=== PATIENT | male | born 1995 | race Two or more races ===

== ENCOUNTER 2016-11-21 22:53 | Emergency (ER) | payer MEDICAID ==
[2016-11-22] MEDS ORDERED: oxyCOD/ACETAMIN 5 MG/325 MG TABLET PO STA
[2016-11-22] MEDS ORDERED: oxyCOD/ACETAMIN 5 MG/325 MG TABLET PO ONE (00:01)
== END 2016-11-22 00:15 | disposition home or self-care (01) ==
DX: S63.8X1A Sprain of other part of right wrist and hand, initial encounter (principal); X50.0XXA Overexertion from strenuous movement or load, initial encounter; W01.0XXA Fall on same level from slipping, tripping and stumbling without subsequent striking against object, initial encounter; Y92.254 Theater (live) as the place of occurrence of the external cause
CPT/HCPCS: 73130; 99283; A9270

== ENCOUNTER 2017-01-25 16:59 | Outpatient (CLI) | payer MEDICAID | END 2017-01-25 17:00 | disposition critical access hospital (66) | LOC: EMS 16:59 | PROVIDERS: ATTEND Surgery | DX: R07.9 Chest pain, unspecified (principal) | CPT/HCPCS: A0425; A0427 ==

== ENCOUNTER 2017-01-25 17:21 | Emergency (ER) | payer MEDICAID ==
--- NOTE | 2017-01-25 18:24 | ED Physician Documentation ---
PD HPI CHEST PAIN - Stated complaint Stated Complaint: L CP/ ANXIETY - Chief complaint Chief Complaint: Cardiac - History obtained from History obtained from: Patient - History of Present Illness Timing - onset: Today Timing - onset during: Emotional event (was in verbal argument and very anxious , felt left chest pain and general weakness.) Timing - duration: Hours (1) Timing - details: Abrupt onset, Now resolved Quality: Pressure, Aching Location: Left chest Radiation: Neck, Left upper extremity Improved by: Rest Worsened by: No: Inspiration, Movement Associated symptoms: Shortness of air. 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 denies: Palpitations, Pedal edema, Calf pain Respiratory: denies: Dyspnea, Cough, Wheezing PD PAST MEDICAL HISTORY - Past Medical History Cardiovascular: None Respiratory: None Neuro: None Endocrine/Autoimmune: None GI: None : None HEENT: None Psych: None Musculoskeletal: None Derm: None - Past Surgical History Past Surgical History: No - Present Medications Home Medications: Ambulatory Orders Medication Instructions Recorded Confirmed HYDROcod/ACETAM 5/325 [[place] 5/325] 1 - 2 ea PO Q6H PRN #15 tablet 03/12/16 oxyCODONE/ACET 5/325 [Percocet 5 1 - 2 each PO Q6H PRN #14 tablet 11/22/16 mg/325 mg] Hydrocodone/Acetaminophen [[place] 1 each PO Q6H PRN #15 tablet 01/25/17 5-325 Tablet] Lorazepam 1 mg PO ONCE PRN #5 tablet 01/25/17 Naproxen [Naprosyn] 500 mg PO BID #15 tablet 01/25/17 - Allergies Allergies/Adverse Reactions: Allergies Allergy/AdvReac Type Severity Reaction Status Date / Time No Known Drug Allergies Allergy Verified 11/21/16 23:05 - Social History Does the pt smoke?: No Smoking Status: Never smoker Does the pt drink ETOH?: No Does the pt have substance abuse?: No - Family History Family history: reports: CAD (at mid ages (40s and 50s)). denies: Sudden , Venous thromboembolism, Aortic aneursym, Aortic dissection - Immunizations Immunizations are current?: Yes - POLST Patient has POLST: No PD ED PE NORMAL - Vitals Vital signs reviewed: Yes - General General: Alert and oriented X 3, Well developed/nourished, Other (significantly obese) - HEENT HEENT: Moist mucous membranes, Pharynx benign - Neck Neck: Supple, no meningeal sign, No adenopathy, No JVD, No bruit - Cardiac Cardiac: RRR, No murmur, No rub - Respiratory Respiratory: No respiratory distress, Clear bilaterally, Other (left pectoral area with some tenderness to palpatyion. ) - Abdomen Abdomen: Soft, Non tender - Derm Derm: Normal color, Warm and dry, No rash - Extremities Extremities: No tenderness to palpate, Normal ROM s pain, No edema, No calf tenderness / cord - Neuro Neuro: Alert and oriented X 3, No motor deficit, Normal speech - Psych Psych: No: Normal affect (depressed and slightly anxious) Results - Vitals Vitals: Oxygen O2 Source Room air - Labs Labs: Laboratory Tests 01/25/17 01/25/17 01/25/17 19:15 19:15 19:15 WBC 12.8 H RBC 5.30 Hgb 14.8 Hct 43.9 MCV 82.9 MCH 28.0 MCHC 33.8 RDW 13.7 Plt Count 231 MPV 8.0 Neut # 7.0 H Lymph # 4.5 H [place] # 1.0 Eos # 0.2 Baso # 0.0 Absolute Nucleated RBC 0.00 Nucleated RBCs 0.0 Sodium 138 Potassium 3.5 Chloride 105 Carbon Dioxide 24 Anion Gap 9.0 BUN 17 Creatinine 0.6 Estimated GFR (MDRD) 168 Glucose 98 Calcium 8.9 Total Bilirubin 0.5 AST 58 H ALT 75 H Alkaline Phosphatase 75 Troponin I < 0.04 B-Natriuretic Peptide Total Protein 7.4 Albumin 3.9 Globulin 3.5 Albumin/Globulin Ratio 1.1 Lipase 13 L 01/25/17 19:15 WBC RBC Hgb Hct MCV MCH MCHC RDW Plt Count MPV Neut # Lymph # [place] # Eos # Baso # Absolute Nucleated RBC Nucleated RBCs Sodium Potassium Chloride Carbon Dioxide Anion Gap BUN Creatinine Estimated GFR (MDRD) Glucose Calcium Total Bilirubin AST ALT Alkaline Phosphatase Troponin I B-Natriuretic Peptide 17 Total Protein Albumin Globulin Albumin/Globulin Ratio Lipase PD MEDICAL DECISION MAKING - ED course Complexity details: considered differential (The chest pain came on during emotional verbal argument, and is better now, though with some left chest/ pectoral area tenderness. 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 even though young, could consider stress testing to ensure no CAD. ), d/w patient Departure - Departure Disposition: Home, Self Care Clinical Impression: Emotional stress reaction Chest pain Qualifiers: Chest pain type: precordial pain Qualified Code(s): R07.2 - Precordial pain Condition: Stable Record reviewed to determine appropriate education?: Yes Instructions: ED Strain Chest Wall, ED Chest Pain Atypical Unkn Cause Follow-Up: [facility] [Provider Group] [facility] - Card [Provider Group] Prescriptions: Lorazepam 1 mg PO ONCE PRN #5 tablet PRN Reason: Anxiety Naproxen [Naprosyn] 500 mg PO BID #15 tablet Hydrocodone/Acetaminophen [[place] 5-325 Tablet] 1 each PO Q6H PRN #15 tablet PRN Reason: Pain Comments: Likely to be muscular chest pain and can be from emotional and physical stress. Naproxen twice daily for a week, and add Tylenol or hydrocodone as needed for pains. Can use Lorazepam periodically if needed for anxiety reaction. Follow up with [facility] about this and/or call Cardiology group. Consider a heart stress test to ensure no signs of heart disease. Discharge Date/Time: 01/25/17 20:42
[2017-01-25] MEDS ORDERED: KETOROLAC 30 MG/ML VIAL ONE (19:02)
[2017-01-25] MEDS ORDERED: LORazepam 2 MG/ML SYRINGE ONE (19:03)
[2017-01-25] MEDS: KETOROLAC 60 MG/2 ML VIAL IVP STA (19:11)
[2017-01-25] MEDS: LORazepam 2 MG/ML SYRINGE IVP STA (19:11)
[2017-01-25 19:47] LABS: BASOPHILS % (AUTO) 0.3 %; EOSINOPHILS # (AUTO) 0.2 10^3/uL (0.0-0.7); EOSINOPHILS % (AUTO) 1.8 %; HCT - HEMATOCRIT 43.9 % (42.0-52.0); HGB - HEMOGLOBIN 14.8 g/dL (14.0-18.0); LYMPHOCYTES # (AUTO) 4.5 10^3/uL (1.5-3.5); LYMPHOCYTES % (AUTO) 35.4 %; MEAN CORPUSCULAR HGB CONC 33.8 g/dL (32.0-36.0); MEAN CORPUSCULAR VOLUME 82.9 fL (80.0-94.0); NEUTROPHILS % (AUTO) 54.5 %; RED CELL DISTRIBUTION WIDTH 13.7 % (12.0-15.0); UNCORRECTED WHITE BLOOD COUNT 12.8 x10^3/uL; WHITE BLOOD COUNT 12.8 x10^3/uL (4.8-10.8)
--- NOTE | 2017-01-25 19:52 | XRAY Preliminary Report ---
Exam: XR Chest 2 View PA/LAT IMPRESSION: Normal 2-view chest radiography. [facility] SITE ID: [id number]
--- NOTE | 2017-01-25 19:53 | XRAY Report ---
EXAM: CHEST RADIOGRAPHY EXAM DATE: 01/25/2017 07:36 PM. CLINICAL HISTORY: Left chest pain today. COMPARISON: 10/31/2012. TECHNIQUE: 2 views. FINDINGS: Lungs/Pleura: No focal opacities evident. No pleural effusion. No pneumothorax. Normal volumes. Mediastinum: Heart and mediastinal contours are unremarkable. Other: No bony abnormality noted. IMPRESSION: Normal 2-view chest radiography. [facility] Referring Provider Line: [phone] SITE ID: [id number]
[2017-01-25 20:01] LABS: ALBUMIN/GLOBULIN RATIO 1.1 (1.0-2.2); BILIRUBIN,TOTAL 0.5 mg/dL (0.2-1.0); CALCIUM 8.9 mg/dL (8.5-10.3); CREATININE 0.6 mg/dL (0.6-1.2); POTASSIUM 3.5 mmol/L (3.5-5.0); TOTAL PROTEIN 7.4 g/dL (6.7-8.2)
[2017-01-25] MEDS ORDERED: HYDROcod/ACETAM 5/325 MG TABLET ONE (20:29)
[2017-01-25] MEDS: HYDROcod/ACETAM 5/325 MG TABLET PO STA (20:31)
[2017-01-25] MEDS ORDERED: ONDANSETRON 4 MG/2 ML VIAL ONE (20:35)
[2017-01-25 20:37] VITALS: BP 152/72
[2017-01-25] MEDS: ONDANSETRON 4 MG/2 ML VIAL IVP STA (20:37)
== END 2017-01-25 20:42 | disposition home or self-care (01) ==
LOC: EDUNIT# → ED 17:21
DX: R07.9 Chest pain, unspecified (principal); F43.8 Other reactions to severe stress
CPT/HCPCS: 36415; 71020; 80053; 83690; 83880; 84484; 85025; 93005; 96374; 96375; 99283; 99284

== ENCOUNTER 2017-05-08 20:17 | Emergency (ER) | payer MEDICAID ==
[2017-05-08 20:44] VITALS: BP 123/79
--- NOTE | 2017-05-08 22:26 | XRAY Preliminary Report ---
Exam: XR Hand 3 View RT IMPRESSION: 1. No acute abnormality seen in the hand. [facility] SITE ID: [id number]
--- NOTE | 2017-05-08 22:28 | XRAY Report ---
EXAM: RIGHT HAND RADIOGRAPHY EXAM DATE: 05/08/2017 10:04 PM. CLINICAL HISTORY: Pain after injury. COMPARISON: 11/21/2016. TECHNIQUE: 3 views. FINDINGS: Bones: No acute fracture seen. Joints: No dislocation. Joint spaces appear preserved. Soft Tissues: Grossly unremarkable. IMPRESSION: 1. No acute abnormality seen in the hand. [facility] Referring Provider Line: [phone] SITE ID: [id number]
--- NOTE | 2017-05-08 22:31 | ED Physician Documentation ---
PD HPI UPPER EXT INJURY - Stated complaint Stated Complaint: THUMB PX - Chief complaint Chief Complaint: Ext Problem - History obtained from History obtained from: Patient - History of Present Illness Location: Left, Wrist, Hand Type of injury: Other Where injury occurred: Home Timing - onset: Yesterday Timing - details: Gradual onset Improved by: Immobilization Worsened by: Moving, Palpating Associated symptoms: No: Weakness, Numbness Contributing factors: No: Anticoagulated, Prior ortho surgery Similar symptoms before: Has not had sx before Recently seen: Not recently seen - Additonal information Additional information: Patient is a 21 year old male with no significant past medical history who is presenting to the emergency department for right sided thumb pain. Patient states that he was moving into a new apartment yesterday and today he developed pain in his right thumb. patient states that he was lifting things but denied any other trauma. Review of Systems Constitutional: denies: Fever, Chills Eyes: denies: Decreased vision Ears: denies: Ear pain, Drainage/discharge Nose: denies: Congestion Throat: denies: Sore throat Cardiac: denies: Chest pain / pressure GI: denies: Nausea, Vomiting Musculoskeletal: reports: Extremity pain, Joint pain, Extremity swelling Neurologic: denies: Generalized weakness, Focal weakness, Numbness Immunocompromised: denies: Immunocompromised PD PAST MEDICAL HISTORY - Past Medical History Past Medical History: No Cardiovascular: None Respiratory: None Neuro: None Endocrine/Autoimmune: None GI: None : None HEENT: None Psych: None Musculoskeletal: None Derm: None - Past Surgical History Past Surgical History: Yes HEENT: Tonsil/Adenoidectomy - Present Medications Home Medications: Ambulatory Orders Medication Instructions Recorded Confirmed No Known Home Medications [No 05/08/17 05/08/17 Known Home Medications] - Allergies Allergies/Adverse Reactions: Allergies Allergy/AdvReac Type Severity Reaction Status Date / Time No Known Drug Allergies Allergy Verified 05/08/17 20:44 - Social History Does the pt smoke?: No Smoking Status: Never smoker Does the pt drink ETOH?: No Does the pt have substance abuse?: No - Immunizations Immunizations are current?: Yes - POLST Patient has POLST: No PD ED PE NORMAL - Vitals Vital signs reviewed: Yes - General General: Alert and oriented X 3, No acute distress - HEENT HEENT: Atraumatic, PERRL - Neck Neck: Supple, no meningeal sign - Respiratory Respiratory: No respiratory distress - Abdomen Abdomen: Non distended - Derm Derm: Normal color, Warm and dry, No rash - Neuro Neuro: Alert and oriented X 3, No motor deficit, No sensory deficit, Normal speech - Psych Psych: Normal mood PD ED PE EXPANDED - Extremities Extremities: Right hand (tenderness over thenar eminence, and mild tenderness in the thumb. full rom, neurovascularly intact) Results - Vitals Vitals: Vital Signs - 24 hr 05/08/17 20:40 Temperature 36.4 C L Heart Rate 87 Respiratory 18 Rate Blood Pressure 123/79 O2 Saturation 97 Oxygen O2 Source Room air - Rads (name of study) hand x-ray Radiology: Final report received (no acute fracture or dislocation) PD MEDICAL DECISION MAKING - ED course Complexity details: reviewed old records, reviewed results, re-evaluated patient , considered differential, d/w patient ED course: Patient was seen and examined at bedside. patient had been sent for imaging. when patient returned the results were reviewed. there was no acute fracture or dislocation. Patient was treated with motrin and placed in an sameer bandage. patient required no further work up and was stable for discharge with outpatient follow up. Departure - Departure Disposition: 01 Home, Self Care Clinical Impression: Tendonitis of wrist, right Condition: Good Instructions: Wrist Sprain Follow-Up: primary,care provider [Other] - As Needed Comments: Your diagnostics today were within normal limits. there is no acute fracture or dislocation. you are likely to be in pain over the next few days, especially if you have to keep using it. You should take motrin or tylenol as needed fro pain. You should also ice your wrist, keep it elevated and wear the sameer bandage as needed for pain. You should follow up with your pmd if your symptoms persist. You may return to the emergency department at any time for new, worsening or uncontrollable symptoms. Discharge Date/Time: 05/08/17 22:36
== END 2017-05-08 22:36 | disposition home or self-care (01) ==
LOC: ED 20:17
DX: M77.9 Enthesopathy, unspecified (principal)
CPT/HCPCS: 99282; 99283

== ENCOUNTER 2018-02-22 | Outpatient (CLI) | END 2018-02-22 13:13 | disposition critical access hospital (66) | CPT/HCPCS: A0425; A0429 ==

== ENCOUNTER 2018-02-22 13:41 | Emergency (ER) | payer OTHER, MEDICAID ==
[2018-02-22 14:01] VITALS: BP 158/93
[2018-02-22] MEDS ORDERED: ONDANSETRON ODT 4 MG TABLET TL STA (15:05)
[2018-02-22] MEDS ORDERED: ACETAMINOPHEN 325 MG TABLET PO STA (15:05)
--- NOTE | 2018-02-22 15:10 | ED Physician Documentation ---
History of Present Illness - Stated complaint Stated Complaint: N/V - Chief complaint Chief Complaint: Abd Pain - History obtained from History obtained from: Patient - History of Present Illness Timing: Today Pain level max: 3 Pain level now: 3 Improved by: removing himself from the grill Worsened by: being at the grill. 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 Slightly developed a headache as well. States he has never passed out before. States he felt very hot and overheated. He is currently feeling better, though still mildly nauseated and a slight headache. No focal neurological deficits. No fevers. No recent illnesses. No vomiting. Review of Systems Constitutional: denies: Fever, Chills Ears: denies: Ear pain Nose: denies: Rhinorrhea / runny nose, Congestion Throat: denies: Sore throat Cardiac: denies: Chest pain / pressure Respiratory: denies: Cough GI: denies: Vomiting, Diarrhea Skin: denies: Rash Musculoskeletal: denies: Neck pain, Back pain Neurologic: denies: Headache PD PAST MEDICAL HISTORY - Past Medical History Past Medical History: No Cardiovascular: None Respiratory: None Endocrine/Autoimmune: None GI: None : None HEENT: None Psych: None Musculoskeletal: None Derm: None - Past Surgical History Past Surgical History: Yes HEENT: Tonsil/Adenoidectomy - Present Medications Home Medications: Ambulatory Orders Medication Instructions Recorded Confirmed No Known Home Medications [No 05/08/17 02/22/18 Known Home Medications] - Allergies Allergies/Adverse Reactions: Allergies Allergy/AdvReac Type Severity Reaction Status Date / Time No Known Drug Allergies Allergy Verified 02/22/18 14:01 - Social History Does the pt smoke?: No Smoking Status: Never smoker Does the pt drink ETOH?: No Does the pt have substance abuse?: No - Immunizations Immunizations are current?: Yes - POLST Patient has POLST: No PD ED PE NORMAL - Vitals Vital signs reviewed: Yes - General General: Alert and oriented X 3, Other (morbidly obese male) - HEENT HEENT: PERRL, Moist mucous membranes, Pharynx benign - Neck Neck: Supple, no meningeal sign - Cardiac Cardiac: RRR, Strong equal pulses - Respiratory Respiratory: No respiratory distress, Clear bilaterally - Abdomen Abdomen: Soft, Non tender, Non distended - Back Back: No spinal TTP - Derm Derm: Warm and dry, No rash - Extremities Extremities: No calf tenderness / cord - Neuro Neuro: Alert and oriented X 3, 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, No motor deficit, No sensory deficit, Normal speech - Psych Psych: Normal mood, Normal affect Results - Vitals Vitals: Vital Signs - 24 hr 02/22/18 13:44 Temperature 36.8 C Heart Rate 98 Respiratory 20 Rate Blood Pressure 158/93 H O2 Saturation 94 Oxygen O2 Source Room air - EKG (time done) 1510 Rate: Rate (enter#) (84) Rhythm: NSR [place]: Normal Intervals: Normal [place] QRS: Normal Ischemia: Normal ST segments - Labs Labs: Laboratory Tests 02/22/18 02/22/18 14:50 14:50 WBC 11.2 H RBC 5.33 Hgb 15.3 Hct 44.6 MCV 83.7 MCH 28.7 MCHC 34.3 RDW 13.2 Plt Count 244 MPV 7.4 Neut # (Auto) 6.5 Lymph # (Auto) 3.9 H [place] # (Auto) 0.7 Eos # (Auto) 0.1 Baso # (Auto) 0.0 Absolute Nucleated RBC 0.00 Nucleated RBC % 0.0 Sodium 136 Potassium 3.5 Chloride 102 Carbon Dioxide 25 Anion Gap 9.0 BUN 14 Creatinine 0.7 Estimated GFR (MDRD) 140 Glucose 94 Calcium 9.1 Total Bilirubin 0.7 AST 52 H ALT 70 H Alkaline Phosphatase 87 Total Protein 7.9 Albumin 4.1 Globulin 3.8 Albumin/Globulin Ratio 1.1 Lipase 18 L PD MEDICAL DECISION MAKING - ED course Complexity details: reviewed results, re-evaluated patient, considered differential, d/w patient ED course: Patient is a 22-year-old male who presents to the emergency department 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 He was given a dose of Zofran for nausea and Tylenol for headache. Symptoms resolved. No acute findings on laboratory testing or EKG. He is morbidly obese as well. We will have him drink plenty of fluids at home and follow-up closely with his doctor. Tolerating p.o. without difficulty here. Patient is well-appearing, nontoxic. Afebrile. Patient counseled regarding signs and symptoms for which I believe and urgent re-evaluation would be necessary. Patient with good understanding of and agreement to plan and is comfortable going home at this time This document was made in part using voice recognition software. While efforts are made to proofread this document, sound alike and grammatical errors may occur. - Sepsis Event Vital Signs: Vital Signs - 24 hr 02/22/18 13:44 Temperature 36.8 C Heart Rate 98 Respiratory 20 Rate Blood Pressure 158/93 H O2 Saturation 94 Oxygen O2 Source Room air Departure - Departure Disposition: 01 Home, Self Care Clinical Impression: Near syncope Condition: Good Instructions: ED Near Syncope Unkn Follow-Up: your,doctor in 1 week [Other] Comments: The cause of your symptoms is unclear today, but likely related to the heat and dehydration. Go home today and rest. Drink plenty of water. Return if you worsen. Forms: Activity restrictions Discharge Date/Time: 02/22/18 15:39
[2018-02-22 15:13] LABS: BASOPHILS % (AUTO) 0.2 %; EOSINOPHILS # (AUTO) 0.1 10^3/uL (0.0-0.7); EOSINOPHILS % (AUTO) 1.1 %; HGB - HEMOGLOBIN 15.3 g/dL (14.0-18.0); LYMPHOCYTES # (AUTO) 3.9 10^3/uL (1.5-3.5); LYMPHOCYTES % (AUTO) 34.5 %; MEAN CORPUSCULAR HEMOGLOBIN 28.7 pg (27.0-31.0); MEAN CORPUSCULAR HGB CONC 34.3 g/dL (32.0-36.0); MEAN CORPUSCULAR VOLUME 83.7 fL (80.0-94.0); MEAN PLATELET VOLUME 7.4 fL (7.4-11.4); MONOCYTES # (AUTO) 0.7 10^3/uL (0.0-1.0); MONOCYTES % (AUTO) 6.1 %; NEUTROPHILS # (AUTO) 6.5 10^3/uL (1.5-6.6); NEUTROPHILS % (AUTO) 58.1 %; PLT - PLATELET COUNT 244 10^3/uL (130-450); RED BLOOD COUNT 5.33 10^6/uL (4.70-6.10); RED CELL DISTRIBUTION WIDTH 13.2 % (12.0-15.0); WHITE BLOOD COUNT 11.2 x10^3/uL (4.8-10.8)
[2018-02-22 15:25] LABS: ALBUMIN 4.1 g/dL (3.2-5.5); ALBUMIN/GLOBULIN RATIO 1.1 (1.0-2.2); BILIRUBIN,TOTAL 0.7 mg/dL (0.2-1.0); CALCIUM 9.1 mg/dL (8.5-10.3); CREATININE 0.7 mg/dL (0.6-1.2); TOTAL PROTEIN 7.9 g/dL (6.7-8.2)
== END 2018-02-22 15:39 | disposition home or self-care (01) ==
LOC: EDUNIT# → ED 13:41
DX: R55 Syncope and collapse (principal); R11.0 Nausea; R51 Headache; E66.01 Morbid (severe) obesity due to excess calories
CPT/HCPCS: 36415; 80053; 83690; 85025; 93005; 99282; 99283; A9270; Q0162

== ENCOUNTER 2018-02-24 08:00 | Outpatient (CLI) | payer OTHER, MEDICAID ==
[2018-02-24 10:35] LABS: MUDS CUTOFF CONCENTRATIONS CUTOFF CONC BELOW:
[2018-02-24 12:36] LABS: BUN - BLOOD UREA NITROGEN 12 mg/dL (6-20); CALCIUM 8.8 mg/dL (8.5-10.3); CARBON DIOXIDE - CO2 26 mmol/L (21-32); CHLORIDE 104 mmol/L (101-111); CHOL/HDL RATIO 4.4 (<5.0); CHOLESTEROL 140 mg/dL; CREATININE 0.5 mg/dL (0.6-1.2); GFR - MDRD 206 (>89); GLUCOSE 95 mg/dL (70-100); HDL CHOLESTEROL 32 mg/dL; LDL CHOLESTEROL,CALCULATED 90 mg/dL; LDL/HDL RATIO 2.8 (<3.6); SODIUM 139 mmol/L (135-145); VLDL CHOLESTEROL 18 mg/dL
[2018-02-24 12:45] LABS: THYROID STIMULATING HORMONE 1.47 uIU/mL (0.34-5.60)
[2018-02-24 12:53] LABS: FOLATE 13.82 ng/mL (5.90 - >24.8)
[2018-02-24 13:08] LABS: AMPHETAMINE SCREEN,URINE NEGATIVE (NEGATIVE); BENZODIAZEPINES SCREEN, URINE NEGATIVE (NEGATIVE); COCAINE SCREEN URINE NEGATIVE (NEGATIVE); METHADONE SCREEN, URINE NEGATIVE (NEGATIVE); METHAMPHETAMINES SCREEN, URINE NEGATIVE (NEGATIVE); OPIATE SCREEN, URINE NEGATIVE (NEGATIVE); OXYCODONE SCREEN, URINE NEGATIVE (NEGATIVE); PROPOXYPHENE SCREEN, URINE NEGATIVE (NEGATIVE); TRICYCLIC ANTIDEPRESSANT,URINE NEGATIVE (NEGATIVE)
== END 2018-02-24 08:01 ==
LOC: LAB.N 08:00
PROVIDERS: ATTEND Nurse Practitioner
DX: R03.0 Elevated blood-pressure reading, without diagnosis of hypertension (principal); R55 Syncope and collapse
CPT/HCPCS: 36415; 80048; 80061; 80306; 82607; 82746; 83721; 84443

== ENCOUNTER 2018-03-26 04:13 | Outpatient (CLI) | payer MEDICAID | END 2018-03-26 04:14 | disposition critical access hospital (66) | LOC: EMS 04:13 | PROVIDERS: ATTEND Surgery | DX: R46.4 Slowness and poor responsiveness (principal) | CPT/HCPCS: A0425; A0427; A0999 ==

== ENCOUNTER 2018-03-26 04:33 | Emergency (ER) | payer MEDICAID ==
[2018-03-26 05:30] LABS: BASOPHILS % (AUTO) 0.4 %; EOSINOPHILS # (AUTO) 0.1 10^3/uL (0.0-0.7); EOSINOPHILS % (AUTO) 0.8 %; LYMPHOCYTES # (AUTO) 3.1 10^3/uL (1.5-3.5); LYMPHOCYTES % (AUTO) 29.5 %; MEAN CORPUSCULAR HEMOGLOBIN 29.2 pg (27.0-31.0); MEAN CORPUSCULAR HGB CONC 35.3 g/dL (32.0-36.0); MEAN CORPUSCULAR VOLUME 82.7 fL (80.0-94.0); MEAN PLATELET VOLUME 7.4 fL (7.4-11.4); MONOCYTES # (AUTO) 0.9 10^3/uL (0.0-1.0); MONOCYTES % (AUTO) 8.2 %; NEUTROPHILS # (AUTO) 6.5 10^3/uL (1.5-6.6); NEUTROPHILS % (AUTO) 61.1 %; PLT - PLATELET COUNT 233 10^3/uL (130-450); RED BLOOD COUNT 5.14 10^6/uL (4.70-6.10); WHITE BLOOD COUNT 10.6 x10^3/uL (4.8-10.8)
[2018-03-26 05:36] LABS: ALBUMIN 4.2 g/dL (3.2-5.5); ALBUMIN/GLOBULIN RATIO 1.2 (1.0-2.2); BILIRUBIN,TOTAL 0.6 mg/dL (0.2-1.0); CALCIUM 8.7 mg/dL (8.5-10.3); CREATININE 0.6 mg/dL (0.6-1.2); TOTAL PROTEIN 7.6 g/dL (6.7-8.2)
--- NOTE | 2018-03-26 06:10 | ED Physician Documentation ---
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 en route to ED, medics found patient to be keeping eyes closed and non verbal, although he would follow most commands slowly, and would respond to questions by shaking/nodding head. by the time of my evaluation, he is awake, alert, oriented x 3. he recalls feeling lightheaded while seated and watching TV, got up to tell his he felt lightheaded, then next recalls waking up in ambulance. at the time of my HPI, he is asymptomatic and w/o c/o Review of Systems Eyes: reports: Reviewed and negative Cardiac: reports: Reviewed and negative Respiratory: reports: Reviewed and negative GI: reports: Reviewed and negative Musculoskeletal: reports: Reviewed and negative Neurologic: reports: Syncope, LOC. denies: Generalized weakness, Focal weakness , Numbness, Headache PD PAST MEDICAL HISTORY - Past Medical History Past Medical History: No Cardiovascular: None Respiratory: None Endocrine/Autoimmune: None GI: None : None HEENT: None Psych: None Musculoskeletal: None Derm: None - Past Surgical History Past Surgical History: Yes HEENT: Tonsil/Adenoidectomy - Present Medications Home Medications: Ambulatory Orders Medication Instructions Recorded Confirmed No Known Home Medications [No 05/08/17 02/22/18 Known Home Medications] - Allergies Allergies/Adverse Reactions: Allergies Allergy/AdvReac Type Severity Reaction Status Date / Time No Known Drug Allergies Allergy Verified 02/22/18 14:01 - Social History Does the pt smoke?: No Smoking Status: Never smoker Does the pt drink ETOH?: No Does the pt have substance abuse?: No - Immunizations Immunizations are current?: Yes - POLST Patient has POLST: No PD ED PE NORMAL - Vitals Vital signs reviewed: Yes - General General: Alert and oriented X 3, No acute distress, Well developed/nourished - HEENT HEENT: Atraumatic, PERRL, EOMI - Neck Neck: No bony TTP - Cardiac Cardiac: RRR, No murmur - Respiratory Respiratory: No respiratory distress, Clear bilaterally - Abdomen Abdomen: Soft, Non tender - Derm Derm: Normal color, Warm and dry, No rash - Extremities Extremities: No deformity - Neuro Neuro: Alert and oriented X 3, 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, No motor deficit, No sensory deficit, Normal speech Results - Vitals Vitals: Oxygen O2 Source Room air - EKG (time done) No standard instances Rate: Rate (enter#) (89) Rhythm: NSR [place]: Normal Intervals: Normal [place] QRS: Normal Ischemia: Normal ST segments - Labs Labs: Laboratory Tests 03/26/18 03/26/18 03/26/18 05:19 05:19 05:19 WBC 10.6 RBC 5.14 Hgb 15.0 Hct 42.6 MCV 82.7 MCH 29.2 MCHC 35.3 RDW 13.0 Plt Count 233 MPV 7.4 Neut # (Auto) 6.5 Lymph # (Auto) 3.1 [place] # (Auto) 0.9 Eos # (Auto) 0.1 Baso # (Auto) 0.0 Absolute Nucleated RBC 0.01 Nucleated RBC % 0.1 Sodium 137 Potassium 3.3 L Chloride 104 Carbon Dioxide 25 Anion Gap 8.0 BUN 16 Creatinine 0.6 Estimated GFR (MDRD) 167 Glucose 104 H Calcium 8.7 Total Bilirubin 0.6 AST 36 ALT 57 Alkaline Phosphatase 87 Troponin I < 0.04 Total Protein 7.6 Albumin 4.2 Globulin 3.4 Albumin/Globulin Ratio 1.2 Lipase 20 L - Rads (name of study) chest xray Radiology: Prelim report reviewed, See rad report PD MEDICAL DECISION MAKING - ED course Complexity details: reviewed old records, reviewed results, re-evaluated patient , considered differential, d/w patient - Sepsis Event Vital Signs: Oxygen O2 Source Room air Departure - Departure Disposition: 01 Home, Self Care Clinical Impression: Chest pain Qualifiers: Chest pain type: unspecified Qualified Code(s): R07.9 - Chest pain, unspecified Syncope Qualifiers: Syncope type: unspecified Qualified Code(s): R55 - Syncope and collapse Condition: Good Instructions: ED Chest Pain Atypical Unkn Cause, ED Fainting Unkn Cause Discharge Date/Time: 03/26/18 07:18
--- NOTE | 2018-03-26 07:13 | XRAY Report ---
Procedure Date: 03/26/2018 Accession Number: [id number] / [id number] Procedure: XR - Chest 2 View X-Ray CPT Code: 06059 FULL RESULT: EXAM: CHEST RADIOGRAPHY EXAM DATE: 03/26/2018 06:41 AM. CLINICAL HISTORY: Syncope, chest pain. COMPARISON: 01/25/2017. TECHNIQUE: 2 views. FINDINGS: Lungs/Pleura: No focal opacities evident. No pleural effusion. No pneumothorax. Normal volumes. Mediastinum: Heart and mediastinal contours are unremarkable. Other: None. IMPRESSION: Normal 2-view chest radiography. [facility]
[2018-03-26 07:18] VITALS: BP 124/72
== END 2018-03-26 07:18 | disposition home or self-care (01) ==
LOC: EDUNIT# → ED 04:33
DX: R07.9 Chest pain, unspecified (principal); R55 Syncope and collapse
CPT/HCPCS: 36415; 71046; 80053; 83690; 84484; 85025; 93005; 99284

== ENCOUNTER 2018-04-02 08:02 | Outpatient (CLI) | payer MEDICAID | END 2018-04-02 08:03 | disposition critical access hospital (66) | LOC: EMS 08:02 | PROVIDERS: ATTEND Surgery | DX: R45.851 Suicidal ideations (principal) | CPT/HCPCS: A0425; A0429; A0999 ==

== ENCOUNTER 2018-04-02 08:23 | Emergency (ER) | payer MEDICAID ==
[2018-04-02 08:58] LABS: BASOPHILS % (AUTO) 0.1 %; EOSINOPHILS # (AUTO) 0.1 10^3/uL (0.0-0.7); EOSINOPHILS % (AUTO) 1.2 %; HGB - HEMOGLOBIN 15.1 g/dL (14.0-18.0); LYMPHOCYTES # (AUTO) 2.8 10^3/uL (1.5-3.5); LYMPHOCYTES % (AUTO) 33.9 %; MEAN CORPUSCULAR HEMOGLOBIN 28.8 pg (27.0-31.0); MEAN CORPUSCULAR HGB CONC 34.4 g/dL (32.0-36.0); MEAN CORPUSCULAR VOLUME 83.8 fL (80.0-94.0); MEAN PLATELET VOLUME 7.7 fL (7.4-11.4); MONOCYTES # (AUTO) 0.7 10^3/uL (0.0-1.0); NEUTROPHILS # (AUTO) 4.7 10^3/uL (1.5-6.6); NEUTROPHILS % (AUTO) 56.8 %; PLT - PLATELET COUNT 207 10^3/uL (130-450); RED BLOOD COUNT 5.24 10^6/uL (4.70-6.10); RED CELL DISTRIBUTION WIDTH 13.4 % (12.0-15.0); WHITE BLOOD COUNT 8.3 x10^3/uL (4.8-10.8)
[2018-04-02 09:10] LABS: ALBUMIN 3.9 g/dL (3.2-5.5); ALBUMIN/GLOBULIN RATIO 1.1 (1.0-2.2); ALKALINE PHOSPHATASE 81 IU/L (42-121); ALT ALANINE AMINOTRANSFERASE 58 IU/L (10-60); AST ASPARTATE AMINOTRANSFERASE 34 IU/L (10-42); BUN - BLOOD UREA NITROGEN 14 mg/dL (6-20); CARBON DIOXIDE - CO2 25 mmol/L (21-32); CHLORIDE 106 mmol/L (101-111); CREATININE 0.6 mg/dL (0.6-1.2); GFR - MDRD 167 (>89); GLUCOSE 105 mg/dL (70-100); LIPASE 20 U/L (22-51); SALICYLATE < 6.0 mg/dL; SODIUM 139 mmol/L (135-145); TOTAL PROTEIN 7.4 g/dL (6.7-8.2)
[2018-04-02 09:13] LABS: ACETAMINOPHEN < 10 ug/mL (10-30)
[2018-04-02 09:24] LABS: MUDS CUTOFF CONCENTRATIONS CUTOFF CONC BELOW:
[2018-04-02 09:26] LABS: BILIRUBIN,URINE NEGATIVE (NEGATIVE); GLUCOSE, URINE (UA) NEGATIVE (NEGATIVE); KETONES,URINE (UA) TRACE mg/dL (NEGATIVE); LEUKOCYTE ESTERASE, URINE NEGATIVE (NEGATIVE); NITRITE,URINE NEGATIVE (NEGATIVE); OCCULT BLOOD,URINE NEGATIVE (NEGATIVE); PROTEIN,URINE NEGATIVE (NEGATIVE); UROBILINOGEN,URINE 1 (NORMAL) E.U./dL (NORMAL)
[2018-04-02 09:28] LABS: CLARITY,URINE CLEAR (CLEAR)
[2018-04-02 09:39] LABS: AMPHETAMINE SCREEN,URINE NEGATIVE (NEGATIVE); BENZODIAZEPINES SCREEN, URINE NEGATIVE (NEGATIVE); COCAINE SCREEN URINE NEGATIVE (NEGATIVE); METHADONE SCREEN, URINE NEGATIVE (NEGATIVE); METHAMPHETAMINES SCREEN, URINE NEGATIVE (NEGATIVE); OPIATE SCREEN, URINE NEGATIVE (NEGATIVE); OXYCODONE SCREEN, URINE NEGATIVE (NEGATIVE); PROPOXYPHENE SCREEN, URINE NEGATIVE (NEGATIVE); TRICYCLIC ANTIDEPRESSANT,URINE NEGATIVE (NEGATIVE)
--- NOTE | 2018-04-02 12:28 | ED Physician Documentation ---
PD HPI MHE - Stated complaint Stated Complaint: SI - Chief complaint Chief Complaint: MHE - History obtained from History obtained from: Patient - History of Present Illness Primary symptom: Suicidal ideation, Depression Contributing factors: Family (Marital) Similar symptoms before: Has not had sx before - Additional information Additional information: Patient is a 22-year-old male who arrives via ambulance with complaint of suicidal ideation. He is currently undergoing separation from his , and states he is not taking it well. He has been considering suicide, and this morning was holding a knife to his neck when his mother saw him, stopped him, and called 911. He denies history of similar symptoms in the past. He denies any recent alcohol or other drugs. Review of Systems Constitutional: denies: Fever Nose: denies: Congestion Throat: denies: Sore throat Cardiac: denies: Chest pain / pressure Respiratory: denies: Dyspnea, Cough GI: denies: Abdominal Pain, Nausea, Vomiting : denies: Dysuria Skin: denies: Rash Musculoskeletal: denies: Back pain Neurologic: denies: Headache Psychiatric: reports: Depressed, Suicidal. denies: Homicidal, Hallucinations, Delusions PD PAST MEDICAL HISTORY - Past Medical History Cardiovascular: None Respiratory: None Endocrine/Autoimmune: None GI: None : None HEENT: None Psych: None Musculoskeletal: None Derm: None - Past Surgical History Past Surgical History: Yes HEENT: Tonsil/Adenoidectomy - Present Medications Home Medications: Ambulatory Orders Medication Instructions Recorded Confirmed No Known Home Medications [No 05/08/17 02/22/18 Known Home Medications] - Allergies Allergies/Adverse Reactions: Allergies Allergy/AdvReac Type Severity Reaction Status Date / Time No Known Drug Allergies Allergy Verified 02/22/18 14:01 - Social History Does the pt smoke?: No Smoking Status: Never smoker Does the pt drink ETOH?: Yes Does the pt have substance abuse?: No - Immunizations Immunizations are current?: Yes - POLST Patient has POLST: No PD ED PE NORMAL - Vitals Vital signs reviewed: Yes (Normal) - General General: Alert and oriented X 3, Other (Obese) - HEENT HEENT: Atraumatic, Moist mucous membranes, Pharynx benign - Neck Neck: No adenopathy, No JVD - Cardiac Cardiac: RRR, No murmur - Respiratory Respiratory: No respiratory distress, Clear bilaterally - Abdomen Abdomen: Soft, Non tender - Back Back: No CVA TTP - Derm Derm: No rash - Extremities Extremities: No edema, No calf tenderness / cord - Neuro Neuro: Alert and oriented X 3, No motor deficit, Normal speech - Psych Psych: Other (Blunted affect.) Results - Vitals Vitals: Vital Signs - 24 hr 04/02/18 04/02/18 04/02/18 08:25 18:04 19:33 Temperature 36.3 C L 36.8 C 36.8 C Heart Rate 74 79 85 Respiratory 18 16 18 Rate Blood Pressure 128/78 140/84 H 147/89 H O2 Saturation 97 96 96 Oxygen O2 Source Room air - Labs Labs: Laboratory Tests 04/02/18 04/02/18 04/02/18 08:47 08:47 09:15 WBC 8.3 RBC 5.24 Hgb 15.1 Hct 43.9 MCV 83.8 MCH 28.8 MCHC 34.4 RDW 13.4 Plt Count 207 MPV 7.7 Neut # (Auto) 4.7 Lymph # (Auto) 2.8 [place] # (Auto) 0.7 Eos # (Auto) 0.1 Baso # (Auto) 0.0 Absolute Nucleated RBC 0.01 Nucleated RBC % 0.1 Sodium 139 Potassium 3.3 L Chloride 106 Carbon Dioxide 25 Anion Gap 8.0 BUN 14 Creatinine 0.6 Estimated GFR (MDRD) 167 Glucose 105 H Calcium 9.0 Total Bilirubin 1.0 AST 34 ALT 58 Alkaline Phosphatase 81 Total Protein 7.4 Albumin 3.9 Globulin 3.5 Albumin/Globulin Ratio 1.1 Lipase 20 L Urine Color DARK YELLOW Urine Clarity CLEAR Urine pH 6.0 Ur Specific [place] 1.025 Urine Protein NEGATIVE Urine Glucose (UA) NEGATIVE Urine Ketones TRACE Urine Occult Blood NEGATIVE Urine Nitrite NEGATIVE Urine Bilirubin NEGATIVE Urine Urobilinogen 1 (NORMAL) Ur Leukocyte Esterase NEGATIVE Ur Microscopic Review NOT INDICATED Urine Culture Comments NOT INDICATED Salicylates < 6.0 Urine Opiates Screen NEGATIVE Ur Oxycodone Screen NEGATIVE Urine Methadone Screen NEGATIVE Ur Propoxyphene Screen NEGATIVE Acetaminophen < 10 L Ur Barbiturates Screen NEGATIVE Ur Tricyclics Screen NEGATIVE Ur Phencyclidine Scrn NEGATIVE Ur Amphetamine Screen NEGATIVE U Methamphetamines Scrn NEGATIVE U Benzodiazepines Scrn NEGATIVE Urine Cocaine Screen NEGATIVE U Cannabinoids Screen NEGATIVE Ethyl Alcohol < 5.0 PD MEDICAL DECISION MAKING - ED course Complexity details: reviewed results, re-evaluated patient, considered differential, d/w patient, d/w business information consultant ED course: The patient's presentation is significant for acute depression with suicidal ideation. His presentation does not suggest psychosis or hallucinations. His laboratory values and tox screen are negative. I discussed his condition with the senior medical billing specialist who evaluated him in the emergency department and feels his condition warrants hospitalization in a psychiatric facility. He has been accepted by staff at [facility]. He will be transported by [facility] ambulance. Transfer forms were completed. - Sepsis Event Vital Signs: Vital Signs - 24 hr 04/02/18 04/02/18 04/02/18 08:25 18:04 19:33 Temperature 36.3 C L 36.8 C 36.8 C Heart Rate 74 79 85 Respiratory 18 16 18 Rate Blood Pressure 128/78 140/84 H 147/89 H O2 Saturation 97 96 96 Oxygen O2 Source Room air Departure - Departure Disposition: 65 Psych Hosp/Unit DC/Xfer Clinical Impression: Suicidal ideation Depression Qualifiers: Depression Type: unspecified Qualified Code(s): F32.9 - Major depressive disorder, single episode, unspecified Discharge Date/Time: 04/02/18 19:30
[2018-04-02 19:34] VITALS: BP 147/89
== END 2018-04-02 19:30 ==
LOC: EDUNIT# → ED 08:23 → EEVIPCON 08:23 → ED 19:30
DX: R45.851 Suicidal ideations (principal); F32.9 Major depressive disorder, single episode, unspecified
CPT/HCPCS: 36415; 80053; 80306; 80307; 80320; 80329; 81001; 81003; 83690; 85025; 87086; 99283; 99285

== ENCOUNTER 2022-07-05 02:00 | Emergency (ER) | payer MEDICAID, OTHER ==
[2022-07-05 02:16] VITALS: BP 163/99
--- NOTE | 2022-07-05 02:24 | ED Physician Documentation ---
PD HPI LOWER EXT INJURY - Stated complaint Stated Complaint: right knee pain - Chief complaint Chief Complaint: Ext Problem - History obtained from History obtained from: Patient - Additional information Additional information: Patient is a 26-year-old male presenting for evaluation of right knee pain that is been present for 1 week. He reports He stepped off a chair wrong and it started to hurt after that. When he fully extends he feels that it pops. He does have an injury to the knee several years ago and did undergo physical therapy which improved his symptoms.He has used Tylenol which is also helping. He denies pain elsewhere. Review of Systems Nose: denies: Congestion Respiratory: denies: Dyspnea GI: denies: Abdominal Pain Musculoskeletal: reports: Extremity pain Neurologic: denies: Head injury PD PAST MEDICAL HISTORY - Past Medical History Past Medical History: Yes Cardiovascular: None Respiratory: None Endocrine/Autoimmune: None GI: None : None HEENT: None Psych: None Musculoskeletal: Other Derm: None Other Past Medical History: R knee injury w/ no repair - Past Surgical History Past Surgical History: Yes HEENT: Tonsil/Adenoidectomy - Present Medications Home Medications: Ambulatory Orders Medication Instructions Recorded Confirmed No Known Home Medications 05/08/17 07/05/22 - Allergies Allergies/Adverse Reactions: Allergies Allergy/AdvReac Type Severity Reaction Status Date / Time No Known Drug Allergies Allergy Verified 07/05/22 02:16 - Social History Does the pt smoke?: No Smoking Status: Never smoker Does the pt drink ETOH?: Yes Does the pt have substance abuse?: No - Immunizations Immunizations are current?: Yes - POLST Patient has POLST: No PD ED PE NORMAL - General General: Alert and oriented X 3, No acute distress, Well developed/nourished - HEENT HEENT: Atraumatic, Moist mucous membranes - Neck Neck: Supple, no meningeal sign - Cardiac Cardiac: Strong equal pulses - Respiratory Respiratory: No respiratory distress - Extremities Extremities: No deformity, Normal ROM s pain, No edema, No calf tenderness / cord, Other (Mild medial right knee tenderness, no deformities, no erythema, no edema; No laxity) - Neuro Neuro: No motor deficit, No sensory deficit Results - Vitals Vitals: Vital Signs - 24 hr 07/05/22 02:12 Temperature 36.2 C L Heart Rate 88 Respiratory 18 Rate Blood Pressure 163/99 H O2 Saturation 98 Oxygen O2 Source Room air PD MEDICAL DECISION MAKING - ED course Complexity details: reviewed results, re-evaluated patient ED course: Patient presenting for evaluation of Right knee pain After injury 2 weeks ago. Patient is able to ambulate. No visible deformities on exam. Neurovascularly intact. No laxity. X-ray does not demonstrate a fracture or a dislocation. There is a slight tilt laterally to the patella.Patient was counseled on utilizing a brace and crutches. He declined crutches here. He is aware of need for close follow-up. He was advised on concerning symptoms to return for. Departure - Departure Disposition: Home, Self Care Clinical Impression: Right knee injury Qualifiers: Encounter type: initial encounter Qualified Code(s): S89.91XA - Unspecified injury of right lower leg, initial encounter Condition: Stable Instructions: ED Knee Pain UKO Comments: I do not see a fracture or dislocated bone on your x-ray. You may have an injury to another structure in your knee joint. I would recommend using a knee brace and/or crutches as needed to help with pain. I would also recommend anti- inflammatories and ice and close follow-up with your primary care doctor if your symptoms or not improving over the next week.
--- NOTE | 2022-07-05 07:22 | XRAY Report ---
PROCEDURE: Knee 3 View RT INDICATIONS: medial pain TECHNIQUE: 4 views of the right knee(s) were acquired. COMPARISON: Right knee radiographs 03/12/2016 FINDINGS: Bones: No fractures or dislocations. There may be mild lateral subluxation of the patella. This appe ars unchanged on the frontal projection compared to 2016. Small osteophyte at the superior patella. N o suspicious bony lesions. Soft tissues: No joint effusion. No suspicious soft tissue calcifications. IMPRESSION: Question mild lateral subluxation of the patella. MRI could be considered for further evaluation. This report is concordant with the overnight preliminary interpretation. Reviewed by: Yosvany Gonzalez MD on 07/05/2022 6:20 AM CYNTHIA Approved by: Yosvany Gonzalez MD on 07/05/2022 6:20 AM CYNTHIA Station ID: [id number]
== END 2022-07-05 03:17 | disposition home or self-care (01) ==
LOC: ED 02:00
DX: S89.91XA Unspecified injury of right lower leg, initial encounter (principal); X50.1XXA Overexertion from prolonged static or awkward postures, initial encounter; Y93.89 Activity, other specified
CPT/HCPCS: 99282; 99283